=== PATIENT | male | born 1965 | race African-American/Black ===

== ENCOUNTER 2019-01-02 00:52 | Emergency (ER) | payer OTHER | END 2019-01-02 01:27 | disposition left against medical advice (07) | LOC: ER 00:52 | DX: Z53.21 Procedure and treatment not carried out due to patient leaving prior to being seen by health care provider (principal) ==

== ENCOUNTER 2019-01-02 15:10 | Emergency (ER) | payer OTHER ==
[~2019-01-02] VITALS: Ht 175.3 cm; Wt 73.0 kg
[2019-01-02] MEDS ORDERED: KETOROLAC 60MG/2ML VIAL IM STA (17:45)
[2019-01-02 19:15] VITALS: BP 121/62
== END 2019-01-02 19:16 | disposition home or self-care (01) ==
LOC: ER 15:10
DX: S60.811A Abrasion of right wrist, initial encounter (principal); M79.662 Pain in left lower leg; V03.99XA Pedestrian with other conveyance injured in collision with car, pick-up truck or van, unspecified whether traffic or nontraffic accident, initial encounter; Y93.89 Activity, other specified; Y92.89 Other specified places as the place of occurrence of the external cause; Y99.8 Other external cause status
CPT/HCPCS: 73110; 73610; 96372; 99283; J1885; Z7610

== ENCOUNTER 2019-11-04 07:05 | Emergency (ER) | payer OTHER ==
[~2019-11-04] VITALS: Ht 180.3 cm; Wt 69.0 kg
[2019-11-04] MEDS ORDERED: FLEXERIL (07:34)
[2019-11-04] MEDS ORDERED: IBUP-1653 PO (07:34)
[2019-11-04] MEDS ORDERED: KETOROLAC 60MG/2ML VIAL IM STA (09:43)
[2019-11-04] MEDS ORDERED: CYCLOBENZAPRINE 10MG TABLET PO ONE (09:45)
[2019-11-04 11:15] VITALS: BP 143/91
== END 2019-11-04 11:17 | disposition home or self-care (01) ==
LOC: ER 07:05
DX: M54.6 Pain in thoracic spine (principal); M25.512 Pain in left shoulder
CPT/HCPCS: 93005; 96372; 99283; J1885